=== PATIENT | female | born 1980 | race Hispanic/Latino ===

== ENCOUNTER 2020-01-07 09:37 | Inpatient (IN) | payer MEDICAID ==
[~2020-01-07] VITALS: Ht 160 cm; Wt 84.4 kg
[2020-01-07 10:09] VITALS: BP 126/78
[2020-01-07 11:03] LABS: HEMATOCRIT 34.9 % (36-48); MEAN CORPUSCULAR VOLUME 94.1 fL (79-99); RED BLOOD CELL COUNT(AUTO) 3.71 MIL/uL (4.00-5.50); RED CELL DISTRIBUTION WIDTH 13.7 % (11.0-15.5); WHITE BLOOD COUNT (AUTO) 10.1 K/uL (4.8-10.8)
[2020-01-07] MEDS ORDERED: LACTATED RINGERS 1000ML 1,000 ML IV PRN (11:03)
[2020-01-07] MEDS ORDERED: AMPICILLIN 2GM+NS 100ML 100 ML IV ONE (11:54)
[2020-01-07] MEDS ORDERED: LACTATED RINGERS 1000ML 1,000 ML IV ONE (11:54)
[2020-01-07] MEDS ORDERED: LACTATED RINGERS 500 ML 500 ML IV PRN (12:00)
[2020-01-07] MEDS ORDERED: NALOXONE HCL 0.4 MG/1 ML ML IV PRN (12:00)
[2020-01-07] MEDS ORDERED: EPHEDRINE SULFATE 50 MG/ML AMPULE IVP PRN (12:00)
[2020-01-07] MEDS ORDERED: OXYTOCIN 10 USP UNITS/ML 20 UNIT in LACTATED RINGERS 1000ML 1,000 ML IV SCH (12:00)
[2020-01-07] MEDS ORDERED: AMPICILLIN 1GM+NS 50ML 50 ML IV SCH (12:00)
[2020-01-07] MEDS ORDERED: AMPICILLIN 2GM+NS 100ML 100 ML IV SCH (12:00)
[2020-01-07] MEDS ORDERED: OXYTOCIN-LR 20 UNITS/1000 ML 1,000 ML IV ONE ×2 (12:23→16:26)
[2020-01-07] MEDS ORDERED: BENZOCAINE/LANOLIN/ALOE VERA 60 ML AEROSOL TP PRN (14:30)
[2020-01-07] MEDS ORDERED: LANOLIN 30GM OINTMENT TP PRN (14:30)
[2020-01-07] MEDS ORDERED: ACETAMINOPHEN 325 MG TAB PO PRN (14:30)
[2020-01-07] MEDS ORDERED: ACETAMINOPHEN-CODEINE 300/30MG TAB PO PRN (14:30)
[2020-01-07] MEDS ORDERED: WITCH HAZEL 1 PAD TP PRN (14:30)
[2020-01-07] MEDS ORDERED: MISOPROSTOL 200 MCG TABLET ONE (16:26)
[2020-01-07] MEDS ORDERED: METHYLERGONOVINE MALEATE 0.2 MG/1 ML ML ONE (16:26)
[2020-01-07 17:33] VITALS: BP 133/68
[2020-01-07] MEDS ORDERED: DIPH,PERTUSS(ACELL),TET VAC/PF 0.5 ML VIAL IM ONE (18:15)
[2020-01-07] MEDS: IBUPROFEN 600 MG TABLET PO PRN (18:47)
[2020-01-07 19:22] VITALS: BP 116/72
--- NOTE | 2020-01-07 20:15 | NUR ---
Activity: Patient assisted to void noted with 1 big clot as big as a fist. Fundus firm with massage. Instructed how to use the sitz bath. Patient verbalizes understanding.
[2020-01-07] MEDS: DOCUSATE SODIUM 100 MG CAP PO SCH (21:05)
[2020-01-07 23:55] VITALS: BP 121/73
[2020-01-08] MEDS: IBUPROFEN 600 MG TABLET PO PRN ×4 (02:15→19:49)
[2020-01-08 02:48] VITALS: BP 121/74
[2020-01-08 06:37] LABS: HEMATOCRIT 28.6 % (36-48); MEAN CORPUSCULAR HEMOGLOBIN 30.5 pg (27.0-33.0); MEAN CORPUSCULAR HGB CONC 32.9 g/dL (32.0-36.0); MEAN CORPUSCULAR VOLUME 92.9 fL (79-99); RED BLOOD CELL COUNT(AUTO) 3.08 MIL/uL (4.00-5.50); RED CELL DISTRIBUTION WIDTH 13.8 % (11.0-15.5)
[2020-01-08 07:13] VITALS: BP 115/69
[2020-01-08] MEDS: DOCUSATE SODIUM 100 MG CAP PO SCH ×2 (08:19→21:17)
[2020-01-08 12:00] VITALS: BP 109/61
[2020-01-08 16:25] VITALS: BP 110/69
[2020-01-08 19:56] VITALS: BP 140/80
[2020-01-09 00:30] VITALS: BP 126/78
[2020-01-09 03:25] VITALS: BP 112/75
[2020-01-09 05:10] LABS: HEPATITIS Bs ANTIGEN SCREEN P Negative (Negative)
[2020-01-09] MEDS: IBUPROFEN 600 MG TABLET PO PRN ×2 (07:25→15:30)
[2020-01-09 07:38] VITALS: BP 125/68
[2020-01-09] MEDS: DOCUSATE SODIUM 100 MG CAP PO SCH (09:50)
[2020-01-09 11:36] VITALS: BP 124/80
--- NOTE | 2020-01-09 12:26 | NUR ---
RICCARDO DUARTE attempted to reach [facility] to see if they were open and accepting families related to Coronavirus. No answer, FELICIA left message. Waiting for response
--- NOTE | 2020-01-09 13:00 | NUR ---
Verbal and written discharge instructions given, informed of the follow up appointment, no prescription given. all questions answered. informed to call the doctor for future concerns. pt voiced understanding to all things discussed. Addendum: 01/09/20 at 1340 by ARELI GARZA RN Amended: Links added.
--- NOTE | 2020-01-09 13:00 | NUR ---
Verbal and written discharge instructions given, informed of the follow up appointment, prescription given. all questions answered. informed to call the doctor for future concerns. pt voiced understanding to all things discussed.
[2020-01-09 16:26] VITALS: BP 128/76
--- NOTE | 2020-01-09 18:21 | NUR ---
pt is dismissed in stable condition, brought to private car via wheelchair by Graciela [employer] tech Addendum: 01/09/20 at 1823 by ARELI GARZA RN Amended: Links added.
== END 2020-01-09 18:25 | disposition home or self-care (01) | DRG 560 ==
LOC: EDH 09:37 → LDH 09:53 → OBSVTOIN 13:56 → WSH 17:30
PROVIDERS: ADMIT Obstetrics & Gynecology; ATTEND Obstetrics & Gynecology
PROC: 10E0XZZ Delivery of Products of Conception, External Approach (ICD-10-PCS; principal; 2020-01-07)
PROC: 10907ZC Drainage of Amniotic Fluid, Therapeutic from Products of Conception, Via Natural or Artificial Opening (ICD-10-PCS; 2020-01-07)
PROC: 0KQM0ZZ Repair Perineum Muscle, Open Approach (ICD-10-PCS; 2020-01-07)
PROC: 3E0R3BZ Introduction of Anesthetic Agent into Spinal Canal, Percutaneous Approach (ICD-10-PCS; 2020-01-07)
PROC: 00HU33Z Insertion of Infusion Device into Spinal Canal, Percutaneous Approach (ICD-10-PCS; 2020-01-07)
PROC: 3E0234Z Introduction of Serum, Toxoid and Vaccine into Muscle, Percutaneous Approach (ICD-10-PCS; 2020-01-07)
DX: O69.81X0 Labor and delivery complicated by cord around neck, without compression, not applicable or unspecified (principal); Z37.0 Single live birth; O70.1 Second degree perineal laceration during delivery; Z3A.40 40 weeks gestation of pregnancy; Z23 Encounter for immunization
CPT/HCPCS: 36415; 85027; 86592; 86701; 86850; 86900; 86901; 87340; 87390; 90715; A4314; G0378; J0290; J2210; J2590; J7120